=== PATIENT | female | born 1975 | race Caucasian/White ===

== ENCOUNTER 2020-06-05 23:40 | Emergency (ER) | payer SELFPAY ==
[2020-06-06] MEDS ORDERED: KETOROLAC 30 MG/ML INJ ONE (00:23)
--- NOTE | 2020-06-06 01:12 | ER ---
Nurse's Notes [facility] Kenny Name: Nirali Zhou Age: 44 yrs Sex: Female : 1975 Arrival Date: 06/05/2020 Time: 23:42 Bed 5 Private MD: Diagnosis: Pain in right elbow-possible small avulsion fracture;Contusion of right forearm Presentation: 06/05 23:42 Chief complaint: EMS states: Reports she was detaching a trailer from her truck and the ea "landing gear" swung and hit her in the forearm. 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 Coronavirus screen: Client denies travel out of the [place] in the last 14 days. At this time, the client does not indicate any symptoms associated with coronavirus-19. Ebola Screen: Patient negative for fever greater than or equal to 101.5 degrees Fahrenheit, and additional compatible Ebola Virus Disease symptoms. Initial Sepsis Screen: Does the patient meet any 2 criteria? No. Patient's initial sepsis screen is negative. Does the patient have a suspected source of infection? No. Patient's initial sepsis screen is negative. Risk Assessment: Do you want to hurt yourself or someone else? Patient reports no desire to harm self or others. Onset of symptoms was June 05, 2020. 23:42 Method Of Arrival: EMS: [facility] ea 23:42 Acuity: JEREMIE 3 ea Triage Assessment: 23:51 General: Appears in no apparent distress. uncomfortable, Behavior is calm, cooperative, ea appropriate for age. Pain: Complains of pain in right antecubital area and dorsal aspect of right forearm Pain currently is 8 out of 10 on a pain scale. Pain began suddenly, Is continuous. Musculoskeletal: Capillary refill < 3 seconds, Range of motion: intact in all extremities, limited in right elbow. Injury Description: sling to R arm per EMS. 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 - Social history:: Smoking status: Patient reports the use of cigarette tobacco products, smokes one pack cigarettes per day. Screenin/02 00:30 Abuse screen: Denies threats or abuse. Nutritional screening: No deficits noted. ea Tuberculosis screening: No symptoms or risk factors identified. Fall Risk None identified. Assessment: 00:29 Reassessment: Patient and/or family updated on plan of care and expected duration. Pain ea level reassessed. Patient is alert, oriented x 3, equal unlabored respirations, skin warm/dry/pink. General: Appears uncomfortable, Behavior is cooperative. Pain: Complains of pain in right arm Pain currently is 10 out of 10 on a pain scale. Neuro: No deficits noted. Cardiovascular: No deficits noted. Respiratory: No deficits noted. GI: No deficits noted. : No deficits noted. EENT: No deficits noted. Derm: No deficits noted. Musculoskeletal: Reports pain in right elbow. 01:06 Reassessment: Patient and/or family updated on plan of care and expected duration. Pain ea level reassessed. Patient is alert, oriented x 3, equal unlabored respirations, skin warm/dry/pink. 01:40 Reassessment: Patient and/or family updated on plan of care and expected duration. Pain ea level reassessed. Patient is alert/active/playful, equal unlabored respirations, skin warm/dry/pink. General: Appears comfortable, Behavior is cooperative. Pain: Complains of pain in right arm Pain currently is 4 out of 10 on a pain scale. Vital Signs: 06/05 23:42 BP 121 / 91; Pulse 88; Resp 16; Temp 98.4; Pulse Ox 95% on R/A; Weight 94.35 kg (R); ea Height 5 ft. 5 in. (165.10 cm) (R); Pain 8/; 06/06 00:30 BP 108 / 65; Pulse 94; Resp 16; Pulse Ox 95% on R/A; Pain 07/14; ea 01:30 BP 118 / 68; Pulse 80; Resp 18; Pulse Ox 98% on R/A; ea 06/05 23:42 Body Mass Index 34.61 (94.35 kg, 165.10 cm) ea ED Course: 06/05 23:42 Patient arrived in ED. ea 23:42 Matty Soriano NP is PHCP. pm1 23:42 Kaden Oglesby MD is Attending Physician. pm1 23:47 Triage completed. ea 23:51 Arm band placed on left wrist. ea 06/06 00:11 Ludivina Barba RN is Primary Nurse. mt2 00:30 Forearm Right XRAY In Process Unspecified. EDMS 00:30 Humerus Right XRAY In Process Unspecified. EDMS 00:30 Patient has correct armband on for positive identification. Bed in low position. Call ea light in reach. Side rails up X 1. 01:40 No provider procedures requiring assistance completed. Patient did not have IV access ea during this emergency room visit. 01:41 Orthoglass splint: posterior long arm splint applied to the right arm. Sling applied to ea right arm. Administered Medications: 00:19 Drug: TORadol 60 mg Route: IM; Site: left gluteus; ea 00:29 Follow up: Response: No adverse reaction ea Outcome: 01:11 Discharge ordered by . pm1 01:41 Discharged to home ambulatory. ea 01:41 Condition: stable 01:41 Discharge instructions given to patient, Instructed on discharge instructions, follow up and referral plans. medication usage, Demonstrated understanding of instructions, follow-up care, medications, Prescriptions given X 1. 01:42 Patient left the ED. ea Signatures: Dispatcher [employer] [facility] Matty Soriano NP SEMICONDUCTOR PROCESSOR pm1 Sarah Noriega RN RN Ludivina Washburn RN RN mt2
--- NOTE | 2020-06-06 01:12 | EDPHYS ---
Physician Documentation [facility] Kenny Name: Nirali Zhou Age: 44 yrs Sex: Female : 1975 Arrival Date: 06/05/2020 Time: 23:42 Bed 5 Private MD: Kaden Cates HPI: 06/06 00:09 This 44 yrs old Female presents to ER via EMS with complaints of Arm Injury. pm1 00:09 The patient or guardian complains of pain. The complaints affect the dorsal aspect of pm1 right forearm. Context: The problem was sustained at work, resulted from Crank swung back and hit her on the proximal aspect of her right forearm when she let the crank go. Onset: The symptoms/episode began/occurred just prior to arrival. Treatment prior to arrival includes: sling. Modifying factors: The symptoms are alleviated by remaining still, the symptoms are aggravated by movement. Associated signs and symptoms: Pertinent negatives: numbness, tingling. The patient has not experienced similar symptoms in the past. The patient has not recently seen a physician, out of town. 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 - Social history:: Smoking status: Patient reports the use of cigarette tobacco products, smokes one pack cigarettes per day. ROS: 06/06 00:09 Constitutional: Negative for fever, chills, and weight loss, Cardiovascular: Negative pm1 for chest pain, palpitations, and edema, Respiratory: Negative for shortness of breath, cough, wheezing, and pleuritic chest pain. Skin: Negative for injury, rash, and discoloration, Neuro: Negative for headache, weakness, numbness, tingling, and seizure. MS/extremity: Positive for pain, swelling, of the proximal dorsal aspect of right forearm, Negative for decreased range of motion, deformity. Exam: 00:09 Constitutional: This is a well developed, well nourished patient who is awake, alert, pm1 and in no acute distress. Head/Face: Normocephalic, atraumatic. 00:09 Skin: Warm, dry with normal turgor. Normal color with no rashes, no lesions, and no evidence of cellulitis. 00:09 Cardiovascular: Exam negative for acute changes, Rate: normal, Rhythm: regular, Pulses: no pulse deficits are appreciated. 00:09 Respiratory: Exam negative for acute changes, respiratory distress, shortness of breath. 00:09 Musculoskeletal/extremity: Extremities: grossly normal except: noted in the proximal dorsal aspect of right forearm: swelling, tenderness, no evidence of dislocation of right elbow, Circulation is intact in all extremities. the right arm Sensation intact. 00:09 Neuro: Exam negative for acute changes, Orientation: is normal, Mentation: is normal, Motor: is normal, moves all fours, Sensation: is normal, no obvious gross deficits. Vital Signs: 06/05 23:42 BP 121 / 91; Pulse 88; Resp 16; Temp 98.4; Pulse Ox 95% on R/A; Weight 94.35 kg (R); ea Height 5 ft. 5 in. (165.10 cm) (R); Pain 8/10; 06/06 00:30 BP 108 / 65; Pulse 94; Resp 16; Pulse Ox 95% on R/A; Pain 10/10; ea 01:30 BP 118 / 68; Pulse 80; Resp 18; Pulse Ox 98% on R/A; ea 06/05 23:42 Body Mass Index 34.61 (94.35 kg, 165.10 cm) ea MDM: 06/05 23:43 Patient medically screened. 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 She refused narcotics due to her job. pm1 06/06 01:10 Data reviewed: vital signs. Data interpreted: Pulse oximetry: on room air is 95 %. pm1 Interpretation: normal. Counseling: I had a detailed discussion with the patient and/or guardian regarding: the historical points, exam findings, and any diagnostic results supporting the discharge/admit diagnosis, radiology results, the need for outpatient follow up, for definitive care, a orthopedic surgeon, to return to the emergency department if symptoms worsen or persist or if there are any questions or concerns that arise at home. 01:32 ED course: SECONDARY EDUCATION PROFESSOR aware reviewed. pm1 06/05 23:50 Order name: Forearm Right XRAY pm1 06/05 23:50 Order name: Humerus Right XRAY pm1 06/06 01:09 Order name: Splint - Elbow - Posterior; Complete Time: 01:40 pm1 06/06 01:09 Order name: Sling; Complete Time: 01:40 pm1 Administered Medications: 00:19 Drug: TORadol 60 mg Route: IM; Site: left gluteus; ea 00:29 Follow up: Response: No adverse reaction ea Disposition: 16:41 Co-signature as Attending Physician, Kaden Oglesby MD I agree with the assessment and zac plan of care. Disposition: 06/06/20 01:11 Discharged to Home. Impression: Pain in right elbow - possible small avulsion fracture, Contusion of right forearm. - Condition is Stable. - Discharge Instructions: Contusion, Elbow Fracture, Pediatric, How to Use a Sling. - Prescriptions for Tramadol 50 mg Oral Tablet - take 1 tablet by ORAL route every 8 hours as needed; 12 tablet. - Medication Reconciliation Form, Thank You Letter, Antibiotic Education, Prescription Opioid Use form. - Follow up: Emergency Department; When: As needed; Reason: Worsening of condition. Follow up: Private Physician; When: 2 - 3 days; Reason: Recheck today's complaints, Continuance of care, Re-evaluation by your physician. - Problem is new. - Symptoms have improved. Signatures: Dispatcher [employer] [facility] Kaden Oglesby MD MD cha Marinas, Patrick, MICROSCOPIST MICROSCOPIST pm1 Sarah Noriega RN RN ea Corrections: (The following items were deleted from the chart) 01:28 01:11 06/06/2020 01:11 Discharged to Home. Impression: Pain in right elbow; Contusion pm1 of right forearm. Condition is Stable. Forms are Medication Reconciliation Form, Thank You Letter, Antibiotic Education, Prescription Opioid Use. Follow up: Emergency Department; When: As needed; Reason: Worsening of condition. Follow up: Private Physician; When: 2 - 3 days; Reason: Recheck today's complaints, Continuance of care, Re-evaluation by your physician. Problem is new. Symptoms have improved. pm1 01:42 01:28 06/06/2020 01:11 Discharged to Home. Impression: Pain in right elbow - possible ea small avulsion fracture; Contusion of right forearm. Condition is Stable. Discharge Instructions: Contusion, Elbow Fracture, Pediatric, How to Use a Sling. Prescriptions for Tramadol 50 mg Oral Tablet - take 1 tablet by ORAL route every 8 hours as needed; 12 tablet. and Forms are Medication Reconciliation Form, Thank You Letter, Antibiotic Education, Prescription Opioid Use. Follow up: Emergency Department; When: As needed; Reason: Worsening of condition. Follow up: Private Physician; When: 2 - 3 days; Reason: Recheck today's complaints, Continuance of care, Re-evaluation by your physician. Problem is new. Symptoms have improved. pm1
--- NOTE | 2020-06-06 07:16 | RAD REPORT ---
EXAM DESCRIPTION: RAD - Forearm Right - 06/06/2020 12:29 am CLINICAL HISTORY: PAIN COMPARISON: No comparisons, blunt force trauma to mid forearm FINDINGS: No fracture is identified. There is no dislocation or periosteal reaction noted. No foreign body or other soft tissue abnormality. IMPRESSION: Negative right forearm examination.
--- NOTE | 2020-06-06 07:17 | RAD REPORT ---
EXAM DESCRIPTION: RAD - Humerus Right - 06/06/2020 12:29 am CLINICAL HISTORY: Smash injury;Pain, blunt force trauma COMPARISON: No comparisons FINDINGS: No fracture is identified. There is no dislocation or periosteal reaction noted. No foreig n body or other soft tissue abnormality. IMPRESSION: Negative right humerus examination.
== END 2020-06-06 01:42 | disposition home or self-care (01) ==
LOC: ER 23:40
PROC: 2W38X1Z Immobilization of Right Upper Extremity using Splint (ICD-10-PCS; principal; 2020-06-06)
DX: S50.11XA Contusion of right forearm, initial encounter (principal); M25.521 Pain in right elbow; W20.8XXA Other cause of strike by thrown, projected or falling object, initial encounter; Y93.89 Activity, other specified; Y92.9 Unspecified place or not applicable; Y99.0 Civilian activity done for income or pay; F17.210 Nicotine dependence, cigarettes, uncomplicated; J45.909 Unspecified asthma, uncomplicated
CPT/HCPCS: 96372; 99284